=== PATIENT | female | born 1990 | race Caucasian/White ===

== ENCOUNTER 2017-02-22 14:29 | Emergency (ER) | payer OTHER ==
[~2017-02-22] VITALS: Ht 162.5 cm; Wt 54.4 kg
[~2017-02-22 14:29] MED LIST: ALLEGRA180 MG PO; AMOXIL500 MG PO; ANAPROX DS550 MG PO; BACTRIM 400 MG-1 TAB PO; CIPROFLOXACIN500 MG PO; CLARITIN10 MG PO; EES400 MG PO; HYDROCODONE BIT1 T11 PO; IBUPROFEN 30 M800 MG; MACROBID100 M1 PO; OTC SINUS MED; PRENATAL 1 PLUS1 TA3 PO; Phenergan25 MG PO; SEPTRA DS 800 M1 TAB PO; TYLENOL650 M1 PO; ULTRAM50 MG; ZANTAC150 MG PO; ZITHROMAX Z PA250 MG PO; ZITHROMAX250 MG PO; ZOFRAN ODT4 MG SL; ZOFRAN4 MG PO; Zofran4 MG PO
[2017-02-22] MEDS ORDERED: ULTRAM50 MG PO (16:11)
[2017-02-22] MEDS ORDERED: Motrin,Rufen800 MG PO (16:11)
== END 2017-02-22 16:23 | disposition home or self-care (01) ==
LOC: ED 14:29
DX: S56.911A Strain of unspecified muscles, fascia and tendons at forearm level, right arm, initial encounter (principal); F17.200 Nicotine dependence, unspecified, uncomplicated; Z88.0 Allergy status to penicillin; X58.XXXA Exposure to other specified factors, initial encounter; Y93.89 Activity, other specified; Y92.89 Other specified places as the place of occurrence of the external cause; Y99.8 Other external cause status

== ENCOUNTER 2017-02-25 08:26 | Emergency (ER) | payer OTHER ==
[~2017-02-25] VITALS: Wt 52.6 kg
[~2017-02-25 08:26] MED LIST changes: +Motrin,Rufen800 MG PO; +ULTRAM50 MG PO
[2017-02-25 08:47] LABS: BASO % 0.2 % (0.0-1.0); HEMATOCRIT 51.1 % (37.0-47.0); HEMOGLOBIN 17.3 g/dl (12.0-16.0); LYMPH # 1.8 10*3/uL (1.3-4.4); LYMPH % 18.6 % (27.0-41.0); MEAN CELL VOLUME 88.7 fl (81.0-99.0); MEAN CORPUSCULAR HGB CONC 33.9 g/dl (33.0-37.0); MEAN PLATELET VOLUME 9.9 fl (9.6-12.3); MONO # 0.6 10*3/uL (0.1-1.0); MONO % 6.2 % (3.0-9.0); NEUT # 7.2 10*3/uL (2.3-7.9); NEUT % 74.6 % (47.0-73.0); PLATELET COUNT AUTOMATED 274 10*3/uL (130-400); RED BLOOD COUNT 5.76 10*6/uL (4.10-5.10); RED CELL DISTRI WIDTH 12.1 % (0-14.5); WHITE BLOOD COUNT 9.7 10*3/uL (4.8-10.8)
[2017-02-25 08:59] LABS: BILIRUBIN 1+ (NEGATIVE); BLOOD 2+ (NEGATIVE); CLARITY CLOUDY (CLEAR); COLOR YELLOW (YELLOW); GLUCOSE NEGATIVE (NEGATIVE); KETONE 2+ (NEGATIVE); LEUKO ESTERASE TRACE (NEGATIVE); NITRITE NEGATIVE (NEGATIVE); PROTEIN 1+ (NEGATIVE); SPECIFIC GRAVITY 1.025 (1.005-1.030)
[2017-02-25 09:03] LABS: ALBUMIN 4.5 gm/dl (3.1-4.5); ALKALINE PHOSPHATASE 80 U/L (45-117); BUN 16 mg/dl (7-24); CARBON DIOXIDE 27 mmol/L (21-32); CHLORIDE 104 mmol/L (98-107); EST GLOM FILT AFRICAN AMERICAN > 60 ml/min; GLUCOSE 99 mg/dL (65-99); SGOT/AST 11 IU/L (3-35); SGPT/ALT 17 U/L (12-78); SODIUM 140 mmol/L (136-145); TOTAL PROTEIN 8.5 gm/dL (6.4-8.2)
[2017-02-25 09:05] LABS: B-hCG (QUALITATIVE) NEGATIVE (NEGATIVE)
[2017-02-25 09:11] LABS: BACTERIA 2+; EPITHELIAL CELLS 41-50; MUCOUS 1+; RBC 31-40 rbc/hpf (0-2); URINE REFLEX COMMENT YES (NO); WBC 31-40 wbc/hpf (0-5)
[2017-02-25] MEDS ORDERED: MONUROL3 G1 PO (10:24)
[2017-02-25] MEDS ORDERED: Zofran4 MG PO (10:24)
== END 2017-02-25 11:08 | disposition home or self-care (01) ==
LOC: ED 08:26
PROVIDERS: Emergency Medicine
DX: N39.0 Urinary tract infection, site not specified (principal); R31.9 Hematuria, unspecified; F17.200 Nicotine dependence, unspecified, uncomplicated; Z88.0 Allergy status to penicillin

== ENCOUNTER 2017-11-11 08:22 | Emergency (ER) | payer OTHER ==
[~2017-11-11] VITALS: Ht 167.6 cm; Wt 53.1 kg
[~2017-11-11 08:22] MED LIST changes: +MONUROL3 G1 PO
[2017-11-11 09:02] LABS: BILIRUBIN NEGATIVE (NEGATIVE); BLOOD NEGATIVE (NEGATIVE); CLARITY SL CLOUDY (CLEAR); COLOR YELLOW (YELLOW); GLUCOSE NEGATIVE (NEGATIVE); KETONE NEGATIVE (NEGATIVE); LEUKO ESTERASE 2+ (NEGATIVE); NITRITE NEGATIVE (NEGATIVE); UROBILINOGEN 0.2 E.U./dl (0.2-1.0)
[2017-11-11 09:11] LABS: URINE AMPHETAMINES < 1000 (1000ng/ml); URINE BARBITURATES < 200 (200ng/ml); URINE BENZODIAZEPINES < 200 (200ng/ml); URINE CANNABINOIDS (THC) > 50 (50ng/ml); URINE COCAINE < 300 (300ng/ml); URINE METHADONE < 300 (300ng/ml); URINE OPIATES < 300 (300ng/ml); URINE PHENCYCLIDINE < 25 (25ng/ml)
[2017-11-11 09:14] LABS: BACTERIA 2+; EPITHELIAL CELLS 21-30; MUCOUS 1+; WBC 21-30 wbc/hpf (0-5)
[2017-11-11 10:35] LABS: BASO % 0.2 % (0.0-1.0); EOS % 0.2 % (1.0-4.0); HEMATOCRIT 45.1 % (37.0-47.0); HEMOGLOBIN 15.6 g/dl (12.0-16.0); LYMPH # 1.4 10*3/uL (1.3-4.4); LYMPH % 11.4 % (27.0-41.0); MEAN CELL VOLUME 88.4 fl (81.0-99.0); MEAN CORPUSCULAR HGB 30.6 pg (27.0-31.0); MEAN CORPUSCULAR HGB CONC 34.6 g/dl (33.0-37.0); MEAN PLATELET VOLUME 9.7 fl (9.6-12.3); MONO # 0.5 10*3/uL (0.1-1.0); MONO % 4.4 % (3.0-9.0); NEUT # 10.1 10*3/uL (2.3-7.9); NEUT % 83.5 % (47.0-73.0); PLATELET COUNT AUTOMATED 232 10*3/uL (130-400); WHITE BLOOD COUNT 12.1 10*3/uL (4.8-10.8)
[2017-11-11 11:04] LABS: ALBUMIN 3.7 gm/dl (3.1-4.5); ALKALINE PHOSPHATASE 57 U/L (45-117); BUN 9 mg/dl (7-24); CHLORIDE 107 mmol/L (98-107); CREATININE 0.79 mg/dL (0.55-1.02); LIPASE 82 U/L (73-393); POTASSIUM 4.4 mmol/L (3.5-5.1); SGOT/AST 13 IU/L (3-35); SGPT/ALT 17 U/L (12-78); SODIUM 140 mmol/L (136-145); TOTAL PROTEIN 7.1 gm/dL (6.4-8.2)
[2017-11-11] MEDS ORDERED: SEPTDS PO (11:11)
[2017-11-11] MEDS ORDERED: PYRIDIUM200 M1 PO (11:11)
== END 2017-11-11 11:47 | disposition left against medical advice (07) ==
LOC: ED 08:22
PROVIDERS: Emergency Medicine
DX: R10.2 Pelvic and perineal pain (principal); N39.0 Urinary tract infection, site not specified; F17.200 Nicotine dependence, unspecified, uncomplicated; Z88.0 Allergy status to penicillin

== ENCOUNTER → 2018-01-21 | Outpatient (CLI) | payer OTHER ==
[~2018-01-21] MED LIST changes: +PYRIDIUM200 M1 PO; +SEPTDS PO
== END | disposition home or self-care (01) ==
LOC: US 13:00
DX: R19.8 Other specified symptoms and signs involving the digestive system and abdomen (principal)

== ENCOUNTER → 2018-08-05 | Day surgery (SDC) | payer OTHER ==
[2018-08-05] VITALS (7 sets, daily range): BP systolic 96–126; BP diastolic 59–72
[~2018-08-05] VITALS: Ht 167.6 cm; Wt 48.5 kg
[~2018-08-05] MED LIST changes: +IBU800 MG PO; +NORCO 5-325 TA1 EACH PO
== END | disposition home or self-care (01) ==
LOC: SDC 08-02 13:15
DX: Z30.2 Encounter for sterilization (principal); Z30.432 Encounter for removal of intrauterine contraceptive device; F17.210 Nicotine dependence, cigarettes, uncomplicated; F32.9 Major depressive disorder, single episode, unspecified; Z98.890 Other specified postprocedural states; Z88.0 Allergy status to penicillin

== ENCOUNTER 2019-08-26 15:22 | Emergency (ER) | payer OTHER ==
[~2019-08-26] VITALS: Ht 167.6 cm; Wt 53.1 kg
[2019-08-26] MEDS ORDERED: OMNICEF300 MG PO (16:03)
== END 2019-08-26 15:54 | disposition home or self-care (01) ==
LOC: ED 15:22
DX: H66.91 Otitis media, unspecified, right ear (principal); F17.200 Nicotine dependence, unspecified, uncomplicated; Z88.0 Allergy status to penicillin

== ENCOUNTER → 2020-08-18 | Outpatient (CLI) | payer OTHER ==
[~2020-08-18] MED LIST changes: +OMNICEF300 MG PO
== END | disposition home or self-care (01) ==
LOC: COVID19 14:01
PROVIDERS: ATTEND Internal Medicine
DX: Z20.828 Contact with and (suspected) exposure to other viral communicable diseases (principal)

== ENCOUNTER 2021-09-01 20:52 | Emergency (ER) | payer OTHER | END 2021-09-01 23:05 | disposition left against medical advice (07) | LOC: ED 20:52 | DX: R05.9 Cough, unspecified (principal); Z53.21 Procedure and treatment not carried out due to patient leaving prior to being seen by health care provider ==

== ENCOUNTER 2022-04-11 01:51 | Emergency (ER) | payer OTHER | END 2022-04-11 04:53 | disposition left against medical advice (07) | LOC: ED 01:51 | DX: S96.912A Strain of unspecified muscle and tendon at ankle and foot level, left foot, initial encounter (principal); Z88.0 Allergy status to penicillin; X50.1XXA Overexertion from prolonged static or awkward postures, initial encounter; Y93.89 Activity, other specified; Y92.89 Other specified places as the place of occurrence of the external cause; Y99.8 Other external cause status ==

== ENCOUNTER 2022-12-11 21:23 | Emergency (ER) | payer OTHER ==
[~2022-12-11] VITALS: Ht 170.1 cm; Wt 57.6 kg
[2022-12-11] MEDS ORDERED: CEFDINIR300 MG PO (22:48)
[2022-12-11] MEDS ORDERED: CETIRIZINE10 MG PO (22:48)
== END 2022-12-11 22:44 | disposition home or self-care (01) ==
LOC: ED 21:23
DX: H66.92 Otitis media, unspecified, left ear (principal); Z87.442 Personal history of urinary calculi; F32.A Depression, unspecified; Z88.0 Allergy status to penicillin; Z98.890 Other specified postprocedural states

== ENCOUNTER 2023-03-19 04:19 | Emergency (ER) | payer OTHER ==
[~2023-03-19 04:19] MED LIST changes: +CEFDINIR300 MG PO; +CETIRIZINE10 MG PO
== END 2023-03-19 05:20 | disposition home or self-care (01) ==
LOC: ED 04:19
DX: S62.637A Displaced fracture of distal phalanx of left little finger, initial encounter for closed fracture (principal); S60.222A Contusion of left hand, initial encounter; F32.A Depression, unspecified; Z87.442 Personal history of urinary calculi; Z88.0 Allergy status to penicillin; Z98.890 Other specified postprocedural states; W23.1XXA Caught, crushed, jammed, or pinched between stationary objects, initial encounter; Y93.89 Activity, other specified; Y92.89 Other specified places as the place of occurrence of the external cause; Y99.8 Other external cause status

== ENCOUNTER 2023-04-23 02:40 | Emergency (ER) | payer OTHER ==
[~2023-04-23] VITALS: Ht 170.1 cm; Wt 57.6 kg
[2023-04-23 04:03] LABS: BILIRUBIN Negative (Negative); BLOOD 3+ (Negative); CLARITY Turbid (Clear); COLOR Orange (Yellow); GLUCOSE Negative (Negative); KETONE Negative (Negative); LEUKO ESTERASE 3+ (Negative); NITRITE Negative (Negative); PH 6.5 (4.5-8.0); SPECIFIC GRAVITY 1.015 (1.001-1.030)
[2023-04-23 04:15] LABS: BACTERIA 2+; RBC 31-40 rbc/hpf (0-2); WBC TNTC wbc/hpf (0-5)
[2023-04-23 06:05] LABS: BASO % 0.5 % (0.0-1.0); EOS # 0.1 10*3/uL (0.0-0.4); EOS % 1.3 % (1.0-4.0); HEMATOCRIT 41.6 % (37.0-47.0); LYMPH # 1.5 10*3/uL (1.3-4.4); LYMPH % 23.7 % (27.0-41.0); MEAN CELL VOLUME 86.8 fl (81.0-99.0); MEAN CORPUSCULAR HGB 29.4 pg (27.0-31.0); MEAN CORPUSCULAR HGB CONC 33.9 g/dl (33.0-37.0); MEAN PLATELET VOLUME 9.3 fl (9.6-12.3); MONO # 0.5 10*3/uL (0.1-1.0); MONO % 8.1 % (3.0-9.0); NEUT # 4.2 10*3/uL (2.3-7.9); NEUT % 66.1 % (47.0-73.0); PLATELET COUNT AUTOMATED 256 10*3/uL (130-400); RED BLOOD COUNT 4.79 10*6/uL (4.10-5.10); RED CELL DISTRI WIDTH 12.2 % (0-14.5); WHITE BLOOD COUNT 6.3 10*3/uL (4.8-10.8)
[2023-04-23 06:23] LABS: ALKALINE PHOSPHATASE 79 U/L (46-116); BUN 7 mg/dl (9-23); CHLORIDE 103 mmol/L (98-107); POTASSIUM 3.8 mmol/L (3.4-5.1); TOTAL PROTEIN 6.7 gm/dL (6.0-8.0)
[2023-04-23 06:39] LABS: SGPT/ALT < 7 U/L (10-49)
== END 2023-04-23 07:57 | disposition short-term general hospital (02) ==
LOC: ED 02:40
PROVIDERS: Emergency Medicine
DX: N13.2 Hydronephrosis with renal and ureteral calculous obstruction (principal); N39.0 Urinary tract infection, site not specified; A59.9 Trichomoniasis, unspecified; Z87.442 Personal history of urinary calculi; Z88.0 Allergy status to penicillin; Z79.2 Long term (current) use of antibiotics; Z79.899 Other long term (current) drug therapy

== ENCOUNTER 2023-05-15 05:24 | Emergency (ER) | payer OTHER ==
[~2023-05-15] VITALS: Ht 167.6 cm; Wt 55.8 kg
[2023-05-15 05:58] LABS: BILIRUBIN Negative (Negative); BLOOD 3+ (Negative); CLARITY Clear (Clear); COLOR Yellow (Yellow); GLUCOSE Negative (Negative); KETONE Negative (Negative); LEUKO ESTERASE 3+ (Negative); NITRITE Negative (Negative); PH 7.5 (4.5-8.0)
[2023-05-15 06:06] LABS: RBC TNTC rbc/hpf (0-2)
[2023-05-15 06:07] LABS: BACTERIA 1+; WBC TNTC wbc/hpf (0-5)
[2023-05-15 06:37] LABS: BASO % 0.2 % (0.0-1.0); EOS % 0.2 % (1.0-4.0); HEMATOCRIT 41.1 % (37.0-47.0); LYMPH # 0.9 10*3/uL (1.3-4.4); LYMPH % 6.6 % (27.0-41.0); MEAN CELL VOLUME 85.8 fl (81.0-99.0); MEAN CORPUSCULAR HGB 28.4 pg (27.0-31.0); MEAN CORPUSCULAR HGB CONC 33.1 g/dl (33.0-37.0); MEAN PLATELET VOLUME 8.8 fl (9.6-12.3); MONO # 0.6 10*3/uL (0.1-1.0); MONO % 4.9 % (3.0-9.0); NEUT # 11.5 10*3/uL (2.3-7.9); NEUT % 87.5 % (47.0-73.0); PLATELET COUNT AUTOMATED 396 10*3/uL (130-400); RED BLOOD COUNT 4.79 10*6/uL (4.10-5.10); RED CELL DISTRI WIDTH 12.2 % (0-14.5); WHITE BLOOD COUNT 13.1 10*3/uL (4.8-10.8)
[2023-05-15 06:56] LABS: ALKALINE PHOSPHATASE 132 U/L (46-116); BUN 9 mg/dl (9-23); CHLORIDE 100 mmol/L (98-107); POTASSIUM 3.9 mmol/L (3.4-5.1); SGPT/ALT 13 U/L (10-49)
== END 2023-05-15 09:23 | disposition short-term general hospital (02) ==
LOC: ED 05:24
PROVIDERS: Emergency Medicine
DX: A41.9 Sepsis, unspecified organism (principal); N39.0 Urinary tract infection, site not specified; F32.A Depression, unspecified; Z87.442 Personal history of urinary calculi; Z96.0 Presence of urogenital implants; Z88.0 Allergy status to penicillin; Z98.890 Other specified postprocedural states

== ENCOUNTER → 2023-06-06 | Outpatient (CLI) | payer OTHER | END | disposition home or self-care (01) | LOC: RAD 11:16 | PROVIDERS: ATTEND Urology | DX: N20.0 Calculus of kidney (principal) ==

== ENCOUNTER 2023-08-27 02:41 | Emergency (ER) | payer OTHER ==
[~2023-08-27] VITALS: Ht 170.1 cm; Wt 60.3 kg
[2023-08-27 03:31] LABS: BASO % 0.5 % (0.0-1.0); EOS # 0.2 10*3/uL (0.0-0.4); EOS % 2.7 % (1.0-4.0); HEMATOCRIT 38.9 % (37.0-47.0); LYMPH # 1.8 10*3/uL (1.3-4.4); LYMPH % 24.2 % (27.0-41.0); MEAN CELL VOLUME 82.6 fl (81.0-99.0); MEAN CORPUSCULAR HGB 26.3 pg (27.0-31.0); MEAN CORPUSCULAR HGB CONC 31.9 g/dl (33.0-37.0); MEAN PLATELET VOLUME 9.1 fl (9.6-12.3); MONO # 0.7 10*3/uL (0.1-1.0); MONO % 8.6 % (3.0-9.0); NEUT # 4.8 10*3/uL (2.3-7.9); NEUT % 63.7 % (47.0-73.0); PLATELET COUNT AUTOMATED 306 10*3/uL (130-400); RED BLOOD COUNT 4.71 10*6/uL (4.10-5.10); RED CELL DISTRI WIDTH 15.2 % (0-14.5); WHITE BLOOD COUNT 7.5 10*3/uL (4.8-10.8)
[2023-08-27 03:42] LABS: ACT PARTIAL THROMBO TIME 26.2 SECONDS (20.0-32.1)
[2023-08-27 03:52] LABS: BILIRUBIN Negative (Negative); BLOOD 3+ (Negative); CLARITY Cloudy (Clear); COLOR Yellow (Yellow); GLUCOSE Negative (Negative); KETONE Negative (Negative); LEUKO ESTERASE 3+ (Negative); NITRITE Positive (Negative); PH 6.5 (4.5-8.0); UROBILINOGEN 0.2 E.U./dl (0.0-1.0)
[2023-08-27 03:57] LABS: ALKALINE PHOSPHATASE 85 U/L (46-116); BUN 14 mg/dl (9-23); CHLORIDE 110 mmol/L (98-107); LIPASE 33 U/L (12-53); TOTAL PROTEIN 7.2 gm/dL (6.0-8.0)
[2023-08-27 03:59] LABS: URINE AMPHETAMINES Positive (1000ng/ml); URINE BARBITURATES Negative (200ng/ml); URINE BENZODIAZEPINES Negative (200ng/ml); URINE CANNABINOIDS (THC) Positive (50ng/ml); URINE COCAINE Negative (300ng/ml); URINE METHADONE Negative (300ng/ml); URINE OPIATES Negative (300ng/ml); URINE PHENCYCLIDINE Negative (25ng/ml)
[2023-08-27 04:00] LABS: BACTERIA 2+; RBC 21-30 rbc/hpf (0-2); WBC TNTC wbc/hpf (0-5)
[2023-08-27 04:01] LABS: ETHYL ALCOHOL < 3.0 mg/dl (<3); SGPT/ALT < 7 U/L (5-49)
== END 2023-08-27 06:40 | disposition home or self-care (01) ==
LOC: ED 02:41
PROVIDERS: Internal Medicine
DX: N13.2 Hydronephrosis with renal and ureteral calculous obstruction (principal); F32.A Depression, unspecified; Z88.0 Allergy status to penicillin; Z98.890 Other specified postprocedural states; Z79.899 Other long term (current) drug therapy

== ENCOUNTER 2023-11-23 15:51 | Emergency (ER) | payer OTHER ==
[~2023-11-23] VITALS: Ht 170.1 cm; Wt 58.1 kg
== END 2023-11-23 16:55 | disposition left against medical advice (07) ==
LOC: ED 15:51
DX: R05.9 Cough, unspecified (principal); J02.9 Acute pharyngitis, unspecified; M54.50 Low back pain, unspecified; Z88.0 Allergy status to penicillin; Z53.21 Procedure and treatment not carried out due to patient leaving prior to being seen by health care provider

== ENCOUNTER 2023-11-23 20:41 | Emergency (ER) | payer OTHER ==
[~2023-11-23] VITALS: Ht 170.1 cm; Wt 58.1 kg
== END 2023-11-23 21:58 | disposition home or self-care (01) ==
LOC: ED 20:41
DX: B34.9 Viral infection, unspecified (principal); Z20.822 Contact with and (suspected) exposure to COVID-19; F32.A Depression, unspecified; Z87.442 Personal history of urinary calculi; Z88.0 Allergy status to penicillin; Z98.890 Other specified postprocedural states; Z87.891 Personal history of nicotine dependence

== ENCOUNTER 2024-04-09 19:58 | Emergency (ER) | payer OTHER ==
[~2024-04-09] VITALS: Ht 170.1 cm; Wt 58.1 kg
[2024-04-09 20:29] LABS: BILIRUBIN Negative (Negative); BLOOD 3+ (Negative); CLARITY Turbid (Clear); COLOR Orange (Yellow); GLUCOSE Negative (Negative); KETONE Trace (Negative); LEUKO ESTERASE 3+ (Negative); NITRITE Positive (Negative); PH 7.5 (4.5-8.0); SPECIFIC GRAVITY 1.015 (1.001-1.030)
[2024-04-09 20:37] LABS: BACTERIA 2+; CALCIUM OXALATE CRYSTALS Trace; RBC TNTC rbc/hpf (0-2); WBC 41-50 wbc/hpf (0-5)
[2024-04-09] MEDS ORDERED: Ciprofloxacin Hydrochloride 500 MG TAB PO ONE (22:55)
[2024-04-09] MEDS ORDERED: CIPRO500 MG PO (22:57)
== END 2024-04-09 23:01 | disposition home or self-care (01) ==
LOC: ED 19:58
PROVIDERS: Nurse Practitioner Family
DX: N39.0 Urinary tract infection, site not specified (principal); F32.A Depression, unspecified; Z87.442 Personal history of urinary calculi; Z88.0 Allergy status to penicillin; Z98.890 Other specified postprocedural states; Z87.891 Personal history of nicotine dependence

== ENCOUNTER 2024-07-20 19:12 | Emergency (ER) | payer OTHER ==
[~2024-07-20] VITALS: Ht 170.1 cm; Wt 58.5 kg
[~2024-07-20 19:12] MED LIST changes: +CIPRO500 MG PO
[2024-07-20 19:48] LABS: BILIRUBIN Negative (Negative); BLOOD 3+ (Negative); CLARITY Turbid (Clear); COLOR Yellow (Yellow); GLUCOSE Negative (Negative); KETONE Negative (Negative); LEUKO ESTERASE 3+ (Negative); NITRITE Negative (Negative); PH 7.5 (4.5-8.0)
[2024-07-20 20:03] LABS: BACTERIA 2+; WBC TNTC wbc/hpf (0-5)
[2024-07-20] MEDS ORDERED: CIPRO500 MG PO (20:24)
[2024-07-20] MEDS ORDERED: Ciprofloxacin Hydrochloride 500 MG TAB PO ONE (20:25)
== END 2024-07-20 20:37 | disposition home or self-care (01) ==
LOC: ED 19:12
PROVIDERS: Nurse Practitioner Family
DX: N39.0 Urinary tract infection, site not specified (principal); H66.92 Otitis media, unspecified, left ear; H92.01 Otalgia, right ear; Z88.1 Allergy status to other antibiotic agents; Z88.0 Allergy status to penicillin; Z87.442 Personal history of urinary calculi

== ENCOUNTER 2025-01-23 20:42 | Emergency (ER) | payer OTHER ==
[~2025-01-23] VITALS: Ht 170.1 cm; Wt 61.7 kg
[2025-01-23 21:30] LABS: BILIRUBIN Negative (Negative); BLOOD 3+ (Negative); CLARITY Turbid (Clear); COLOR Orange (Yellow); GLUCOSE Negative (Negative); KETONE Negative (Negative); LEUKO ESTERASE 3+ (Negative); NITRITE Negative (Negative); SPECIFIC GRAVITY 1.015 (1.001-1.030)
[2025-01-23 21:41] LABS: BACTERIA 2+; RBC 21-30 rbc/hpf (0-2); WBC TNTC wbc/hpf (0-5)
[2025-01-23] MEDS ORDERED: CIPRO500 MG PO (21:49)
[2025-01-23] MEDS ORDERED: MIRALAX POWDER17 G1 PO (21:52)
[2025-01-23] MEDS ORDERED: Ciprofloxacin Hydrochloride 500 MG TAB PO ONE (21:55)
== END 2025-01-23 21:59 | disposition home or self-care (01) ==
LOC: ED 20:42
PROVIDERS: Internal Medicine
DX: N39.0 Urinary tract infection, site not specified (principal); K62.3 Rectal prolapse; F32.A Depression, unspecified; Z87.442 Personal history of urinary calculi; Z88.0 Allergy status to penicillin

== ENCOUNTER 2025-04-22 00:07 | Emergency (ER) | payer SELFPAY ==
[~2025-04-22] VITALS: Ht 167.6 cm; Wt 59.9 kg
[~2025-04-22 00:07] MED LIST changes: +MIRALAX POWDER17 G1 PO
[2025-04-22 00:31] LABS: BILIRUBIN Negative (Negative); BLOOD 3+ (Negative); CLARITY Turbid (Clear); COLOR Yellow (Yellow); KETONE Trace (Negative); LEUKO ESTERASE 3+ (Negative); NITRITE Negative (Negative); PH 7.0 (4.5-8.0); SPECIFIC GRAVITY 1.015 (1.001-1.030); UROBILINOGEN 1.0 E.U./dl (0.0-1.0)
[2025-04-22 00:45] LABS: BACTERIA 2+; RBC 41-50 rbc/hpf (0-2); WBC TNTC wbc/hpf (0-5)
[2025-04-22] MEDS ORDERED: FOSFOMYCIN TROME3 GM PO (00:52)
[2025-04-22] MEDS ORDERED: VIBRAMYCIN100 MG PO (00:52)
== END 2025-04-22 01:03 | disposition home or self-care (01) ==
LOC: ED 00:07
PROVIDERS: Internal Medicine
DX: H66.91 Otitis media, unspecified, right ear (principal); N39.0 Urinary tract infection, site not specified; F32.A Depression, unspecified; Z79.899 Other long term (current) drug therapy; Z88.0 Allergy status to penicillin; Z98.890 Other specified postprocedural states

== ENCOUNTER 2025-07-01 02:28 | Emergency (ER) | payer OTHER ==
[~2025-07-01] VITALS: Ht 170.1 cm; Wt 54.4 kg
[~2025-07-01 02:28] MED LIST changes: +FOSFOMYCIN TROME3 GM PO; +VIBRAMYCIN100 MG PO
[2025-07-01 03:13] LABS: BILIRUBIN Negative (Negative); BLOOD 3+ (Negative); CLARITY Turbid (Clear); COLOR Yellow (Yellow); KETONE Negative (Negative); LEUKO ESTERASE 3+ (Negative); NITRITE Negative (Negative); PH 7.0 (4.5-8.0); SPECIFIC GRAVITY 1.015 (1.001-1.030); UROBILINOGEN 1.0 E.U./dl (0.0-1.0)
[2025-07-01 03:35] LABS: BACTERIA 2+; WBC TNTC wbc/hpf (0-5)
[2025-07-01] MEDS ORDERED: CIPRO500 MG PO (03:45)
[2025-07-01] MEDS ORDERED: HEALTHYLAX17 GM PO (03:45)
== END 2025-07-01 03:55 | disposition home or self-care (01) ==
LOC: ED 02:28
PROVIDERS: Internal Medicine
DX: N39.0 Urinary tract infection, site not specified (principal); K59.00 Constipation, unspecified; Z88.0 Allergy status to penicillin; Z79.899 Other long term (current) drug therapy; Z87.442 Personal history of urinary calculi